=== PATIENT | female | born 1945 | race Caucasian/White ===

== ENCOUNTER 2017-10-11 06:02 | Day surgery (SDC) | payer MEDICARE ==
[2017-10-08 11:46] VITALS: BMI 25.0
[2017-10-11] MEDS ORDERED: Fentanyl 250 MCG/5 ML VIAL ONE (06:31)
[2017-10-11] MEDS ORDERED: CEFAZOLIN/Water 2 GM/20 ML SYRINGE ONE (06:57)
[2017-10-11] MEDS ORDERED: Bupivacaine/Epinephrine 0.25% 30 ML VIAL ONE (08:45)
[2017-10-11] MEDS ORDERED: Fentanyl 100 MCG/2 ML VIAL ONE ×3 (08:59→10:03)
[2017-10-11] MEDS ORDERED: Midazolam HCl 2 mg/2 ml Vial ONE (09:22)
[2017-10-11] MEDS ORDERED: Ondansetron HCl/PF 4 MG/2 ML Vial IVP PRN (10:02)
[2017-10-11] MEDS ORDERED: Zolpidem Tartrate 5 MG TAB PO PRN (10:02)
[2017-10-11] MEDS ORDERED: Promethazine HCl 25 MG/ML VIAL IM PRN (10:02)
[2017-10-11] MEDS ORDERED: Ropivacaine 0.2% 550 ML 550 ML NERVE BLCK SCH (10:02)
--- NOTE | 2017-10-11 10:24 | RAD ---
FLUOROSCOPIC LEFT WRIST SERIES TWO VIEWS: INDICATIONS: Intraoperative fracture fixation. FINDINGS: There are two metallic pins traversing the fracture site of the distal radius. There is irregularity of the ulnar styloid. Details limited on the intraoperative fluoroscopic views. IMPRESSION: Intraoperative imaging for metallic fixation of distal radial fracture. POS: [facility]
--- NOTE | 2017-10-11 10:25 | RAD ---
INTRAOPERATIVE TWO VIEW RIGHT KNEE SERIES: INDICATIONS: Fracture fixation. FINDINGS: There are screws and cerclage wires traversing the fracture site of the patella. Details limited on the provided intraoperative fluoroscopic views. IMPRESSION: Intraoperative fluoroscopic imaging for fracture fixation of the right patella. POS: [facility]
[2017-10-11] MEDS ORDERED: Morphine 4 MG/ML VIAL ONE (10:42)
--- NOTE | 2017-10-11 11:50 | OP ---
DATE OF PROCEDURE: 10/11/2017 OPERATION PERFORMED: Open reduction internal fixation of right patellar fracture. PREOPERATIVE DIAGNOSIS: Right transverse patellar fracture. POSTOPERATIVE DIAGNOSIS: Right transverse patellar fracture. COMPLICATIONS: None. ESTIMATED BLOOD LOSS: Minimal. SURGEON: Gaurang Pierce M.D. ANESTHESIA: General plus local. RN INTERNAL MEDICINE: Serge Del Cid PA-C. IMPLANTS: Two 4.0 mm cannulated screws from [employer] were used and a cerclage wire. INDICATIONS: Ms. Barboza is a 71-year-old female who fell. She fractured her left distal radius and her right patella. She was indicated for open reduction internal fixation of the patella as well as pinning of her wrist. Risks have been reviewed, which do include post-traumatic arthritis, nonunion , malunion, nerve or vascular injury, wound complication, need for hardware removal, and others. DESCRIPTION OF PROCEDURE: Ms. Barboza was identified in the preoperative holding area. Her correct extremity was marked. She was carried to the operating room. She was positioned supine. General an esthesia was induced. A multidisciplinary timeout was performed. The right lower extremity was prep ped and draped in sterile fashion. We began the procedure with an anterior approach to the knee. We dissected down through the subcutan eous tissues to the fascia. The fascia was incised and we exposed the patella fracture. This was tr ansverse in orientation. There was some comminution of the distal pole. We used a reduction clamp t o reduce our fracture back into its anatomic position. We then held this with K-wires. Next, we graham james two 4.0 partially threaded cannulated screws from distal to proximal. At this point, we passed a cerclage wire through the screws and formed a [id number] pattern over the top of the patella. We then tightened our wire by twisting. At this point, we made sure there was no prominent hardware. We then took final x-ray images confirming hardware placement. There was no complication. We then thoroughly irrigated with copious lavage. We then closed with a #1 Vicryl suture, 2-0 Vicryl suture and myranda for the skin. A sterile dressing was applied. The patient was taken to the recovery ro om at this point in good condition without complication. IMPLANTS: Two 4.0 [employer] partially threaded screws were used as well as a cerclage wire.
[2017-10-11] MEDS ORDERED: Ropivacaine 0.2% HCl/PF (40 MG/20 ML VIAL) ONE (15:46)
[2017-10-11] MEDS ORDERED: Ropivacaine 0.5% HCl/PF (150 MG/30 ML VIAL) ONE (15:46)
[2017-10-11] MEDS ORDERED: Ketorolac Tromethamine 30 MG/ML VIAL ONE (15:56)
[2017-10-11] MEDS ORDERED: Lidocaine 1% PF 5 ML VIAL ONE (15:56)
[2017-10-11] MEDS ORDERED: Propofol 200 MG/20 ML VIAL ONE (15:56)
[2017-10-11] MEDS ORDERED: Ondansetron HCl/PF 4 MG/2 ML Vial ONE (15:56)
--- NOTE | 2017-10-12 12:12 | OP ---
DATE OF SURGERY: 10/11/2017 PREOPERATIVE DIAGNOSIS: Left radial styloid fracture, closed. POSTOPERATIVE DIAGNOSIS: Left radial styloid fracture, closed. SURGICAL PROCEDURE: Closed reduction and percutaneous pin fixation of left distal radius. ANESTHESIA: General. SURGEON: Enrique Randolph M.D. TOURNIQUET TIME: Zero. IMPLANTS: 0.062 K-wires x2. COMPLICATIONS: None. DRAINS: None. SPECIMEN: None. OUTCOME: Satisfactory. INDICATIONS: The patient is a 71-year-old lady, status post fall sustaining a right patellar fractur e and left distal radial styloid fracture. After discussion with patient including risks and benefit s, we decided to proceed with closed reduction and percutaneous pin fixation of this mildly displaced distal radius. PROCEDURE: The patient was brought to the operating room and a timeout performed followed by general anesthesia. Next, a sterile prep and drape was performed in the left upper extremity. Next, under C-arm guidance, the mildly displaced radial styloid fracture was reduced to near anatomic level. Nex t, a 0.062 K-wire was passed from the tip of the radial styloid obliquely across the fracture into th e distal radial diaphysis. This was followed by a second K-wire passed dorsally to provide a buttres s to the fracture following back into dorsal angulation. Once appropriately positioned, the 2 pins w ere cut proud of the skin and bent at right angles and final AP, lateral C-arm images were obtained. It was then dressed with Xeroform gauze, Webril, and a thumb spica splint. The patient was transfer red to recovery room in stable condition. There were no complications and she tolerated the procedur e well.
== END 2017-10-11 13:45 | disposition home or self-care (01) ==
LOC: SDC 06:02
PROVIDERS: ATTEND Orthopaedic Surgery
PROC: 0QSD04Z Reposition Right Patella with Internal Fixation Device, Open Approach (ICD-10-PCS; principal; 2017-10-11)
PROC: 0PSJ34Z Reposition Left Radius with Internal Fixation Device, Percutaneous Approach (ICD-10-PCS; 2017-10-11)
DX: S82.031A Displaced transverse fracture of right patella, initial encounter for closed fracture (principal); S52.512A Displaced fracture of left radial styloid process, initial encounter for closed fracture; W19.XXXA Unspecified fall, initial encounter
CPT/HCPCS: 25606; 27524; 73100; 73560; 76001; 93005; 96374; 97139; A4306; C1713; C1769; 93010; J1885; J2001; J2250; J2270; J2405; J2704; J2795; J3010